=== PATIENT | female | born 1990 | race Caucasian/White ===

== ENCOUNTER 2018-03-09 21:03 | Emergency (ER) | payer OTHER ==
[~2018-03-09] VITALS: Ht 157.5 cm; Wt 56.7 kg
[2018-03-09 21:39] LABS: ABSOLUTE EOSINOPHILS 0.2 thou/uL (0.0-0.7); ABSOLUTE LYMPHOCYTES 2.4 thou/uL (0.8-5.3); ABSOLUTE MONOCYTES 0.5 thou/uL (0.0-1.2); ABSOLUTE NEUTROPHILS 4.2 thou/uL (1.6-8.1); BASOPHILS 0.4 %; EOSINOPHILS 3.2 %; HEMATOCRIT 36.7 % (37.0-47.0); HEMOGLOBIN 12.4 gm/dL (12.0-15.0); LYMPHOCYTES 33.1 %; MCH 29.8 pg (26.0-34.0); MCHC 33.8 g/dL (28.0-37.0); MCV 88.2 fL (80.0-100.0); MONOCYTES 6.2 %; NUCLEATED RBCS 0 /100WBC; PLATELET COUNT* 238 thou/uL (150-400); POLYS 57.1 %; RBC 4.16 mil/uL (4.20-5.00); RDW-CV 13.7 % (10.5-14.5); WBC 7.3 thou/uL (4.0-11.0)
[2018-03-09 21:44] LABS: URINE BILIRUBIN NEGATIVE (Negative); URINE BLOOD 3+ (Negative); URINE CLARITY CLEAR; URINE COLOR YELLOW; URINE GLUCOSE-RANDOM NEGATIVE (Negative); URINE KETONES NEGATIVE (Negative); URINE LEUKOCYTES-REFLEX NEGATIVE (Negative); URINE NITRITE-REFLEX NEGATIVE (Negative); URINE PROTEIN NEGATIVE (Negative); URINE UROBILINOGEN 0.2 E.U./dl (0.2-1.0)
[2018-03-09 21:47] LABS: ANION GAP 9 mmol/L (7-16); BUN 7 mg/dL (7-18); CALCIUM 8.5 mg/dL (8.5-10.1); CHLORIDE 103 mmol/L (98-107); CO2 27 mmol/L (21-32); CREATININE 0.7 mg/dL (0.6-1.3); GLUCOSE 99 mg/dL (70-99); POTASSIUM 3.8 mmol/L (3.5-5.1); SODIUM 139 mmol/L (136-145)
[2018-03-09 21:50] LABS: AMP/METHAMP POSITIVE (Negative); BARBITURATES Negative (Negative); BENZODIAZEPINES Negative (Negative); COCAINE Negative (Negative); METHADONE Negative (Negative); OPIATES Negative (Negative); PCP Negative (Negative); THC Negative (Negative)
[2018-03-09 21:51] LABS: BACTERIA-REFLEX None Seen /HPF (None Seen); CASTS None Seen /LPF (None Seen); CRYSTALS None Seen /LPF (None Seen); SQUAMOUS 0-3 Few /LPF (0-3); URINE RBC 0-2 Rare /HPF (0-2); URINE WBC-REFLEX 0-5 Rare /HPF (0-5)
[2018-03-09 21:53] LABS: ALBUMIN 3.8 g/dL (3.4-5.0); ALKALINE PHOSPHATASE 60 U/L (46-116); SGOT 13 U/L (15-37); SGPT 19 U/L (30-65); TOTAL BILIRUBIN 0.2 mg/dL (<0.1-1.0); TOTAL PROTEIN 7.3 g/dL (6.4-8.2); TROPONIN-I LEVEL <0.06 ng/mL (<0.06)
[2018-03-09 23:42] VITALS: BP 143/96
--- NOTE | 2018-03-11 14:46 | EKG ---
[place] [address] ELECTROCARDIOGRAM REPORT Name: HANGPACOJULIÁN WALLS Room: [facility]#: [id number] Admission: 03/09/18 Attend Phys: Discharge: 03/09/18 Date of : [birth year] Report #: [id number] THIS REPORT FOR: //name// [facility] ED Test Date: 2018-03-09 Test Time: 22:07:43 Pat Name: JULIÁN MARY Department: Room: Gender: F Manager Bar: BLU : 1990 Requested By: Monroe Butler Order Number: [id number] MD: Geoff Ferreira Measurements Intervals [place] Rate: 117 P: 64 [place]: 125 QRS: 77 QRSD: 106 T: -3 QT: 355 QTc: 496 Interpretive Statements Sinus tachycardia Borderline T abnormalities, inferior leads Prolonged QT interval No previous ECG available for comparison Electronically Signed On 03-11-2018 14:46:16 CONCRETE BOOM PUMP OPERATOR by Geoff Ferreira [email or web address] <ELECTRONICALLY SIGNED> By: Geoff Ferreira MD, [facility] 03/11/18 1446 2207 06 Geoff Ferreira MD, FACC /EPI
== END 2018-03-09 23:43 | disposition home or self-care (01) ==
LOC: M.ERS 21:03
PROVIDERS: Family Medicine
DX: R56.9 Unspecified convulsions (principal)

== ENCOUNTER 2019-05-21 21:57 | Emergency (ER) | payer OTHER ==
[~2019-05-21] VITALS: Ht 157.5 cm; Wt 54.4 kg
[2019-05-21 22:35] LABS: ABSOLUTE BASOPHILS 0.1 thou/uL (0.0-0.2); ABSOLUTE EOSINOPHILS 0.2 thou/uL (0.0-0.7); ABSOLUTE LYMPHOCYTES 2.6 thou/uL (0.8-5.3); ABSOLUTE MONOCYTES 0.4 thou/uL (0.0-1.2); ABSOLUTE NEUTROPHILS 4.4 thou/uL (1.6-8.1); BASOPHILS 0.7 %; EOSINOPHILS 2.7 %; HEMATOCRIT 39.2 % (37.0-47.0); HEMOGLOBIN 13.2 gm/dL (12.0-15.0); LYMPHOCYTES 33.6 %; MCH 27.9 pg (26.0-34.0); MCHC 33.7 g/dL (28.0-37.0); MONOCYTES 5.6 %; MPV 8.2 fl. (7.2-11.1); NUCLEATED RBCS 0 /100WBC; PLATELET COUNT* 251 thou/uL (150-400); POLYS 57.4 %; RBC 4.72 mil/uL (4.20-5.00); RDW-CV 15.2 % (10.5-14.5); WBC 7.7 thou/uL (4.0-11.0)
[2019-05-21 22:37] LABS: CALCIUM 8.7 mg/dL (8.5-10.1); CREATININE 0.8 mg/dL (0.6-1.3)
[2019-05-21] MEDS ORDERED: TRAMADOL 50 MG50 MG PO (22:41)
[2019-05-21] MEDS ORDERED: ADDERALL 10 MG10 MG PO (22:41)
[2019-05-21 22:42] LABS: POTASSIUM 2.7 mmol/L (3.5-5.1)
[2019-05-21 22:51] LABS: ALBUMIN 3.9 g/dL (3.4-5.0); TOTAL BILIRUBIN 0.2 mg/dL (<0.1-1.0); TOTAL PROTEIN 7.7 g/dL (6.4-8.2)
[2019-05-21 23:42] LABS: AMP/METHAMP POSITIVE (Negative); BARBITURATES Negative (Negative); BENZODIAZEPINES Negative (Negative); COCAINE Negative (Negative); METHADONE Negative (Negative); OPIATES Negative (Negative); PCP Negative (Negative); THC Negative (Negative)
[2019-05-21 23:45] LABS: URINE BILIRUBIN NEGATIVE (Negative); URINE BLOOD 1+ (Negative); URINE CLARITY CLEAR; URINE COLOR YELLOW; URINE GLUCOSE-RANDOM NEGATIVE (Negative); URINE KETONES NEGATIVE (Negative); URINE LEUKOCYTES-REFLEX NEGATIVE (Negative); URINE NITRITE-REFLEX NEGATIVE (Negative); URINE PROTEIN 1+ (Negative); URINE SPECIFIC GRAVITY >= 1.030 (1.005-1.030); URINE UROBILINOGEN 0.2 E.U./dl (0.2-1.0)
[2019-05-21] MEDS ORDERED: VIMPAT100 MG PO (23:49)
[2019-05-21] MEDS ORDERED: KLOR-CON 10 ER10 MEQ PO (23:49)
[2019-05-21 23:57] LABS: HYALINE CASTS 0-3 Few /LPF (None Seen); SQUAMOUS 4-10 Moderate /LPF (0-3); URINE WBC-REFLEX 0-5 Rare /HPF (0-5)
[2019-05-21 23:58] LABS: BACTERIA-REFLEX 1-9 Few /HPF (None Seen); CRYSTALS None Seen /LPF (None Seen); URINE RBC 3-10 Few /HPF (0-2)
[2019-05-22 00:10] VITALS: BP 118/72
--- NOTE | 2019-05-26 14:59 | EKG ---
[place] [address] ELECTROCARDIOGRAM REPORT Name: JULIÁN MARY Room: [facility]#: [id number] Admission: 05/21/19 Attend Phys: Discharge: 05/22/19 Date of : [birth year] Date of Service: 05/21/19 2254 Report #: [id number] THIS REPORT FOR: //name// [facility] ED Test Date: 2019-05-21 Test Time: 22:54:48 Pat Name: JULIÁN MARY Department: Room: Gender: F Forms Analyst: PJ : 1990 Requested By: Thu Mcdonald Order Number: [id number] MD: Cyrus Pérez Measurements Intervals [place] Rate: 114 P: 59 [place]: 130 QRS: 79 QRSD: 105 T: 21 QT: 362 QTc: 499 Interpretive Statements Sinus tachycardia Borderline Q waves in inferior leads Minimal ST depression, diffuse leads Prolonged QT interval Compared to ECG 03/09/2018 22:07:43 no change Electronically Signed On 05-22-2019 10:31:29 FELT CARBONIZER by Cyrus Pérez [email or web address] <ELECTRONICALLY SIGNED> By: Cyrus Pérez MD, FACC 05/22/19 1031 2254 2254 Cyrus Pérez MD, [facility] /EPI
== END 2019-05-22 00:10 | disposition home or self-care (01) ==
LOC: M.ERS 21:57
PROVIDERS: Personal Emergency Response Attendant
DX: R56.9 Unspecified convulsions (principal); S00.01XA Abrasion of scalp, initial encounter; W18.39XA Other fall on same level, initial encounter; Y93.89 Activity, other specified; Y92.091 Bathroom in other non-institutional residence as the place of occurrence of the external cause; Y99.8 Other external cause status

== ENCOUNTER 2020-01-06 20:12 | Inpatient (IN) | payer OTHER ==
[~2020-01-06] VITALS: Ht 157.5 cm; Wt 56.7 kg
--- NOTE | ~2020-01-06 | EEG ---
[address] [address] EEG STUDY REPORT Name: JULIÁN MARY Room: [address] IN M.R.#: [id number] Admission: 01/06/20 Attend Phys: Alice العلي Discharge: Date of : [birth year] Report #: [id number] THIS REPORT FOR: //name// CC: FAM physician/PCP Sonali Alatorre DATE OF SERVICE: 01/07/2020 This patient is being evaluated for the possibility of seizure. EEG was done by placing the electrode by standard 1020 system of electrode placement. Both referential and sequential montages were used for recording. Background activity in this patient's EEG is about 9 Hz and 30 microvolt. A lot of EEG was obtained when the patient is drowsy or asleep and that is associated with bilaterally symmetrical sleep spindles and vertex sharp waves. Throughout the record, no active epileptiform activity was noticed. IMPRESSION: This patient's EEG demonstrates no clear-cut spike and slow wave activity. However, the EEG does indicate what looks like some instability. That may be because of drowsiness, but clinical correlation is recommended. By: 1326 [id number] Bustamante MD /nt
--- NOTE | ~2020-01-06 | CON ---
[address] [address] CONSULTATION Name: JULIÁN MARY Room: [address] ADM IN M.R.#: [id number] Admission: 01/06/20 Attend Phys: Alice العلي Discharge: Date of : [birth year] Report #: [id number] THIS REPORT FOR: //name// cc: RAÚL Blake family physician/PCP RAÚL - No family physician/PCP ~ THIS REPORT FOR: //name// DATE OF SERVICE: 01/07/2020 HISTORY OF PRESENT ILLNESS: This is a 29-year-old female patient who was evaluated by me for seizure. First, I talked to the patient and examined her. I also talked to the nurse looking after this patient. The patient gives a history that she had 2 seizures. She indicated that one seizure was 2 years ago, another one was yesterday. She does not remember the description of the seizure. The last seizure, according to her she was worked up at [place] and I do not have the workup. She believes she had an MRI at that time. She said she is taking tramadol for at least 2 years and looks like she is taking a pretty significant dose of tramadol. She said the seizure, which she had about 2 years ago was attributed to tramadol, but she is pretty evasive and it is not clear when the tramadol was stopped and then it was restarted. I reviewed the Emergency Room physician's note in that regard, and looks like she is taking significant amount of tramadol at the moment. She wanted me to call her and I called her and I got altogether different history from him. He said the patient had four seizures, one was 2 years ago, one was about a year ago, one was in the May of this year. I do have the record from the May of this year. She was seen by Dr. Mcdonald, Emergency Room physician at that time and she put this patient on Vimpat. According to the , the patient did reasonably well, but then she stopped taking her Vimpat. He does not know how much tramadol she is taking, but he believes because according to him she is taking behind his back. In addition, it would appear the patient is also taking other potentially epileptiform medications including stimulant. Record also indicate that she takes Adderall, that is probably for attention deficit disorder at that time. The present seizure consisted of mainly becoming stiff and postictal confusion, which has resolved. 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 I do not know how established diagnosis. She takes tramadol. She has tried gabapentin, but apparently that has not been effective. I got an idea from Emergency Room record that she takes a significant amount of tramadol, but I did not get an idea whether she takes it continuously or intermittently. A 14-point review of system is carried out and apparently it is unremarkable. She is not on any control pills. She does not plan to have any more children, but she said she has not had time to establish any control pill or any other [address] [place] [address] CONSULTATION Name: JULIÁN MARY Room: [address] IN M.R.#: [id number] Admission: 01/06/20 Attend Phys: Alice العلي Discharge: Date of : [birth year] Report #: [id number] control method in that regard. Rest of the 14-point review of system was negative. PAST MEDICAL HISTORY: Positive for seizure and this is fourth seizure. FAMILY HISTORY: Positive for epilepsy as I understand. SOCIAL HISTORY: She does smoke, but very occasionally. She does not drink alcohol. PHYSICAL EXAMINATION: She is alert. She is oriented. She can follow simple commands. Her speech, concentration, fund of knowledge and memory is unremarkable. History she provided is different than the , but does not look like that is because of memory lapses. Cranial nerve examinations appear unremarkable. She has no meningeal sign. There is no carotid bruit. Her strength, sensation, reflexes and tone is unremarkable. Both plantars are mute. There is no cerebellar sign. Cardiac examinations appear unremarkable. No respiratory difficulty was noticed. Blood pressure is 104/56, respiration is 12, pulse is 97. I could not look at the fundus. She did not have any imaging study at this time. I did a stat test, which is negative. IMPRESSION: I had a long discussion with the patient and subsequently I had a long discussion with the patient's at her request, I told them that she needs to stop her tramadol and if she is on it for a long time, it needs to be quickly tapered off. How to taper off will be decided by the person who is prescribing it or his psychiatrist specializing in addiction. Tramadol is a highly epileptiform medication and after 4 seizures she should not be on that. Problem if she is taking at such a long time she is going to have withdrawal from it. During that time she may even have more seizures. Furthermore, she had four seizures and sometime patient can continue to have seizure because they have developed predisposition for seizure or they may have predisposition for seizure anyway because of the family history. She was put on anticonvulsant and apparently she did well, but then she came off of it and had a seizure. I told her and the that there is no strong indication to put her on Keppra, but the chances of having a seizure is also high, so she can be on Keppra for a mall period of time until the taper off all epileptiform medications including Adderall, which can also cause seizure. She needs to take strict seizure precautions and she cannot drive at least for 6 months[address] She should not drive until she is cleared by her physician. The other very important thing in her case is that she needs to be on some effective contraception. She needs to talk to an OB or primary care about that. She should also be on folic acid on a regular basis and I [place] [address] CONSULTATION Name: JULIÁN MARY Room: [address] IN [facility].#: [id number] Admission: 01/06/20 Attend Phys: Alice العلي Discharge: Date of : [birth year] Report #: [id number] I spent more than 1 hour of time taking care of this patient today and majority of that time was spent counseling and coordinating. I did write prescriptions for her and if her EEG and CT okay, she can be sent home. I did talk to her that a normal test does not exclude the and discussed with them about having or not having CT and they want to have that and I think it is reasonable to do especially she is also on stimulant. Thank you very much for this referral. If you have any question, please feel free to contact me. By: 1242 [id number] Bustamante MD /nt
[2020-01-06 20:12] VITALS: BP 150/101
[~2020-01-06 20:12] MED LIST: ADDERALL 10 MG10 MG PO; KLOR-CON 10 ER10 MEQ PO; TRAMADOL 50 MG50 MG PO; VIMPAT100 MG PO
[2020-01-06] MEDS ORDERED: TRAMADOL 50 MG50 MG PO (20:16)
[2020-01-06 20:37] LABS: URINE BILIRUBIN NEGATIVE (Negative); URINE BLOOD NEGATIVE (Negative); URINE CLARITY CLEAR; URINE COLOR YELLOW; URINE GLUCOSE-RANDOM NEGATIVE (Negative); URINE KETONES NEGATIVE (Negative); URINE LEUKOCYTES NEGATIVE (Negative); URINE NITRITE NEGATIVE (Negative); URINE PROTEIN NEGATIVE (Negative); URINE UROBILINOGEN 0.2 E.U./dl (0.2-1.0)
[2020-01-06 20:46] LABS: HEMATOCRIT 34.9 % (37.0-47.0); HEMOGLOBIN 11.5 gm/dL (12.0-15.0); MCH 27.2 pg (26.0-34.0); MCHC 32.9 g/dL (28.0-37.0); MCV 82.7 fL (80.0-100.0); MPV 7.1 fl. (7.2-11.1); RBC 4.22 mil/uL (4.20-5.00); RDW-CV 14.8 % (10.5-14.5); WBC 7.7 thou/uL (4.0-11.0)
[2020-01-06 20:46] LABS: AMP/METHAMP Negative (Negative); BARBITURATES Negative (Negative); BENZODIAZEPINES Negative (Negative); COCAINE Negative (Negative); METHADONE Negative (Negative); OPIATES Negative (Negative); PCP Negative (Negative); THC Negative (Negative)
[2020-01-06 20:54] LABS: CALCIUM 8.9 mg/dL (8.5-10.1); CREATININE 0.8 mg/dL (0.6-1.3); POTASSIUM 3.7 mmol/L (3.5-5.1)
[2020-01-06 20:59] LABS: ALBUMIN 3.7 g/dL (3.4-5.0); TOTAL BILIRUBIN 0.2 mg/dL (<0.1-1.0); TOTAL PROTEIN 7.4 g/dL (6.4-8.2)
[2020-01-06 21:00] LABS: ALCOHOL < 10 mg/dL (<10); SALICYLATE < 2.8 mg/dL (2.8-20.0)
[2020-01-06 21:01] LABS: ACETAMINOPHEN < 2 ug/mL (10-30)
[2020-01-06 22:49] VITALS: BP 135/87
[2020-01-06 22:59] VITALS: BP 128/86
[2020-01-06 23:30] VITALS: BP 127/84
[2020-01-07] VITALS (21 sets, daily range): BP systolic 104–138; BP diastolic 56–84
--- NOTE | 2020-01-07 10:02 | EKG ---
[place] [address] ELECTROCARDIOGRAM REPORT Name: JULIÁN MARY Room: [address] ADM IN M.R.#: [id number] Admission: 01/06/20 Attend Phys: Sonali Alatorre Discharge: Date of : [birth year] Date of Service: 01/06/202012 Report #: [id number] THIS REPORT FOR: //name// [facility] ED Test Date: 2020-01-06 Test Time: 20:13:23 Pat Name: JULIÁN MARY Department: Room: [facility] Gender: F Tree Driller: [place] : 1990 Requested By: Thu Mcdonald Order Number: [id number] MD: Cyrus Pérez Measurements Intervals [place] Rate: 144 P: 57 SD: 80 QRS: 55 QRSD: 105 T: 9 QT: 296 QTc: 458 Interpretive Statements Sinus tachycardia Probable left ventricular hypertrophy Compared to ECG 05/21/2019 22:54:48 rate has increased Prolonged QT interval no longer present Electronically Signed On 01-07-2020 10:01:53 CDT by Cyrus Pérez [email or web address] <ELECTRONICALLY SIGNED> By: Cyrus Pérez MD, FACC 01/07/20 1001 12 12 Cyrus Pérez MD, [facility] /EPI
[2020-01-07 11:32] LABS: AMP/METHAMP Negative (Negative); BARBITURATES Negative (Negative); BENZODIAZEPINES Negative (Negative); COCAINE Negative (Negative); METHADONE Negative (Negative); OPIATES Negative (Negative); PCP Negative (Negative); THC Negative (Negative)
[2020-01-07] MEDS ORDERED: FOLIC ACID1 MG PO (15:01)
[2020-01-07] MEDS ORDERED: KEPPRA XR500 MG PO (15:02)
[2020-01-07] MEDS ORDERED: METRONIDAZOLE500 M4 PO (15:02)
== END 2020-01-07 15:40 | disposition home or self-care (01) | DRG 101 ==
LOC: M.ERS 20:12 → M.TBA-ER 21:41 → M.ICU 21:41
PROVIDERS: Internal Medicine; Personal Emergency Response Attendant; ADMIT Internal Medicine; ATTEND Internal Medicine
DX: R56.9 Unspecified convulsions (principal); F17.210 Nicotine dependence, cigarettes, uncomplicated; F90.9 Attention-deficit hyperactivity disorder, unspecified type; M19.90 Unspecified osteoarthritis, unspecified site; T40.425A Adverse effect of tramadol, initial encounter; F15.11 Other stimulant abuse, in remission; Z20.828 Contact with and (suspected) exposure to other viral communicable diseases; Y92.89 Other specified places as the place of occurrence of the external cause; Z79.899 Other long term (current) drug therapy; Z88.1 Allergy status to other antibiotic agents